=== PATIENT | female | born 1970 | race Two or more races ===

== ENCOUNTER 2022-04-12 09:30 | Inpatient (IN) | payer OTHER ==
[~2022-04-12] VITALS: Ht 180.3 cm; Wt 115.7 kg
== END 2022-04-15 19:25 | disposition home or self-care (01) | DRG 743 ==
LOC: O/R 04-14 05:50 → OB/GYN 04-14 05:50 → SURH 04-14 09:30 → OB/GYN 04-14 11:33 → SURH 04-14 12:15 → OB/GYN 04-15 19:25
PROVIDERS: ADMIT Specialist; ATTEND Specialist
PROC: 0UT7FZZ Resection of Bilateral Fallopian Tubes, Via Natural or Artificial Opening With Percutaneous Endoscopic Assistance (ICD-10-PCS; 2022-04-14)
PROC: 0UT2FZZ Resection of Bilateral Ovaries, Via Natural or Artificial Opening With Percutaneous Endoscopic Assistance (ICD-10-PCS; 2022-04-14)
PROC: 0UT9FZZ Resection of Uterus, Via Natural or Artificial Opening With Percutaneous Endoscopic Assistance (ICD-10-PCS; principal; 2022-04-14 12:15)
DX: D25.2 Subserosal leiomyoma of uterus (principal); Z20.822 Contact with and (suspected) exposure to COVID-19; N84.0 Polyp of corpus uteri; N72 Inflammatory disease of cervix uteri; N83.11 Corpus luteum cyst of right ovary